=== PATIENT | male | born 2005 | race Caucasian/White ===

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

== ENCOUNTER 2024-03-30 18:48 | Emergency (ER) | payer OTHER ==
[2024-03-30 19:21] VITALS: BP 133/86; PULSE 75; RESP 18; TEMP 98.1
--- NOTE | 2024-03-30 19:35 | ED ---
Headache HPI - General Source: patient, RN notes reviewed Mode of arrival: ambulatory Limitations: no limitations <Alexis Herbert - Last Filed: 03/30/24 19:33> - General Source: patient, RN notes reviewed <Kat Estrella - Last Filed: 03/30/24 22:45> - General Chief Complaint: Headache Stated Complaint: dizzy blurry vison headache Time Seen by Provider: 03/30/24 18:59 - History of Present Illness Initial Comments: Quick note: This is a 18-year-old male presenting with headache x 2 days. Patient also endorses blurred vision and nausea. Denies fever, chills, chest pain, dyspnea, dizziness, abdominal pain, vomiting/diarrhea. (Alexis Herbert) 18-year-old male presenting for headache x 2 days with associated blurry vision, nausea, and dizziness. States yesterday he was playing with his family when his head was pulled back by another family member. Denies loss of consciousness. Denies blood thinners. States over the past day he has had a constant posterior headache. (Kat Estrella) - Related Data Previous Rx's Medication Instructions Recorded Dicyclomine [Bentyl] 10 mg PO TID PRN 7 Days #21 capsule 06/17/22 Ondansetron Odt [Zofran Odt] 4 mg PO Q8HR PRN 2 Days #6 tab 06/17/22 Cephalexin [Keflex] 500 mg PO Q12HR 7 Days #14 cap 10/06/23 Allergies Allergy/AdvReac Type Severity Reaction Status Date / Time No Known Allergies Allergy Verified 03/30/24 19:20 Review of Systems ROS Other: All systems not noted in ROS Statement are negative. <Alexis Herbert - Last Filed: 03/30/24 19:33> ROS Other: All systems not noted in ROS Statement are negative. <Kat Estrella - Last Filed: 03/30/24 22:45> ROS Statement: Those systems with pertinent positive or pertinent negative responses have been documented in the HPI. Past Medical History Past Medical History: No Reported History History of Any Multi-Drug Resistant Organisms: None Reported Past Surgical History: Hernia Repair, Tonsillectomy Past Psychological History: No Psychological Hx Reported Smoking Status: Vaper Past Alcohol Use History: None Reported Past Drug Use History: None Reported <Alexis Herbert - Last Filed: 03/30/24 19:33> General Exam Limitations: no limitations <Alexis Herbert - Last Filed: 03/30/24 19:33> General appearance: alert, in no apparent distress Head exam: Present: atraumatic, normocephalic, normal inspection Eye exam: Present: normal appearance, PERRL, EOMI. Absent: scleral icterus, conjunctival injection, periorbital swelling ENT exam: Present: normal exam, normal oropharynx, mucous membranes moist, TM's normal bilaterally Neck exam: Present: normal inspection. Absent: tenderness, meningismus, lymphadenopathy Respiratory exam: Present: normal lung sounds bilaterally. Absent: respiratory distress, wheezes, rales, rhonchi, stridor Cardiovascular Exam: Present: regular rate, normal rhythm, normal heart sounds. Absent: systolic murmur, diastolic murmur, rubs, gallop, clicks Neurological exam: Present: alert, oriented X3, CN II-XII intact Psychiatric exam: Present: normal affect, normal mood Skin exam: Present: warm, dry, intact, normal color. Absent: rash <Kat Estrella - Last Filed: 03/30/24 22:45> - General Exam Comments Initial Comments: Visual Physical Exam Vital signs reviewed General: Well-appearing, nontoxic, no acute distress. Head: Normocephalic, atraumatic Eyes: PERRLA, EOMI ENT: Airway patent Chest: Nonlabored breathing Skin: No visual rash, normal skin tone Neuro: Alert and oriented 3 Musculoskeletal: No gross abnormalities (Alexis Herbert) Course Vital Signs 03/30/24 19:17 Temperature 98.1 F Pulse Rate 75 Respiratory 18 Rate Blood Pressure 133/86 O2 Sat by Pulse 100 Oximetry Medical Decision Making <Alexis Herbert - Last Filed: 03/30/24 19:33> <Kat Estrella - Last Filed: 03/30/24 22:45> - Medical Decision Making I completed the quick note portion of this chart signed GLENN Ugarte (Alexis Herbert) Was pt. sent in by a medical professional or institution ([facility], FLOORWORKER DISTRIBUTOR, urgent care, hospital, or intermediate...) When possible be specific @ -No Did you speak to anyone other than the patient for history (EMS, parent, family, police, friend...)? What history was obtained from this source @ -No Did you review nursing and triage notes (agree or disagree)? Why? @ -I reviewed and agree with nursing and triage notes Were old charts reviewed (outside hosp., previous admission, EMS record, old EKG, old radiological studies, urgent care reports/EKG's, intermediate records)? Report findings @ -No old charts were reviewed Differential Diagnosis (chest pain, altered mental status, abdominal pain women, abdominal pain men, vaginal bleeding, weakness, fever, dyspnea, syncope, headache, dizziness, GI bleed, back pain, seizure, CVA, palpatations, mental health, musculoskeletal)? @ -Differential Headache: Migraine, tension, cluster, carbon monoxide, central venous thrombosis, pension karma temporal arteritis, acute closure glaucoma, intercranial hemorrhage, mastoiditis, sinusitis, head injury, this is not meant to be an all-inclusive list. EKG interpreted by me (3pts min.). @ -None X-rays interpreted by me (1pt min.). @ -None done CT interpreted by me (1pt min.). @ -CT brain reveals no acute process U/S interpreted by me (1pt. min.). @ -None done What testing was considered but not performed or refused? (CT, X-rays, U/S, labs)? Why? @ -None What meds were considered but not given or refused? Why? @ -None Did you discuss the management of the patient with other professionals (professionals i.e. , PA, FLOORWORKER DISTRIBUTOR, lab, RT, psych nurse, social media executive, linen aide, teacher, chief lending officer, case hardener)? Give summary @ -No Was smoking cessation discussed for >3mins.? @ -No Was critical care preformed (if so, how long)? @ -No Were there social determinants of health that impacted care today? How? (Homelessness, low income, unemployed, alcoholism, drug addiction, transportation, low edu. Level, literacy, decrease access to med. care, prison, rehab)? @ -No Was there de-escalation of care discussed even if they declined (Discuss DNR or withdrawal of care, Hospice)? DNR status @ -No What co-morbidities impacted this encounter? (DM, HTN, Smoking, COPD, CAD, Cancer, CVA, ARF, Chemo, Hep., AIDS, mental health diagnosis, sleep apnea, m orbid obesity)? @ -None Was patient admitted / discharged? Hospital course, mention meds given and route, prescriptions, significant lab abnormalities, going to OR and other pertinent info. @ -Discharge. 18-year-old male presenting for headache x 2 days status post head injury with associated vision changes, nausea, and dizziness. Denies blood thinners. Neuro examination unremarkable. Provided with dose of Tylenol. CT brain reveals no acute process. Discussed results with patient. Discussed diagnosis of closed head injury. Supportive care/return precautions discussed. Advised to follow-up with PCP for reevaluation. Case was discussed with my ED attending Dr. Yung. Undiagnosed new problem with uncertain prognosis? @ -No Drug Therapy requiring intensive monitoring for toxicity (Heparin, Nitro, Insulin, Cardizem)? @ -No Were any procedures done? @ -No Diagnosis/symptom? @ -Closed head injury Acute, or Chronic, or Acute on Chronic? @ -Acute Uncomplicated (without systemic symptoms) or Complicated (systemic symptoms)? @ -Uncomplicated Side effects of treatment? @ -No Exacerbation, Progression, or Severe Exacerbation? @ -No Poses a threat to life or bodily function? How? (Chest pain, USA, MD, pneumonia, PE, COPD, DKA, ARF, appy, cholecystitis, CVA, Diverticulitis, Homicidal, Suicidal, threat to staff... and all critical care pts) @ -No (Kat Estrella) - Lab Data Lab Results 03/30/24 Range/Units 19:53 Influenza Type A (PCR) Not Detected (Not Detectd) Influenza Type B (PCR) Not Detected (Not Detectd) RSV (PCR) Not Detected (Not Detectd) SARS-CoV-2 (PCR) Not Detected (Not Detectd) Disposition <Alexis Herbert - Last Filed: 03/30/24 19:33> Is patient prescribed a controlled substance at d/c from ED?: No Time of Disposition: 22:45 <Kat Estrella - Last Filed: 03/30/24 22:45> Clinical Impression: Closed head injury Disposition: HOME SELF-CARE Condition: Stable Instructions (If sedation given, give patient instructions): Concussion (ED) Additional Instructions: Please return to the Emergency Department if symptoms worsen or any other guerrero rns. Referrals: None,Stated [Primary Care Provider] - 1-2 days Forms: Area PCPs
[2024-03-30 20:48] LABS: Influenza A Not Detected (Not Detectd); Influenza B Not Detected (Not Detectd); RSV Not Detected (Not Detectd)
[2024-03-30] MEDS: ONDANSETRON ODT 4 MG TAB PO STA (21:20)
[2024-03-30] MEDS: ACETAMINOPHEN TAB 500 MG TAB PO STA (21:21)
--- NOTE | 2024-03-30 22:08 | CT ---
EXAMINATION TYPE: CT brain wo con DATE OF EXAM: 03/30/2024 9:35 PM COMPARISON: 10/29/2023 CLINICAL INDICATION: Male, 18 years old with history of headache x 1 day s/p head injury, headache x 1 day, pain TECHNIQUE: CT of the brain is performed utilizing 3 mm thick sections through the posterior fossa and 3 mm thick sections through the remaining calvarium. Study is performed within 24 hours of arrival to the hospital. Contrast used: mL of , (none if empty) CT DLP: 1012.7 mGycm, Automated exposure control for dose reduction was used. FINDINGS: No abnormal hyperdensity is present to suggest an acute intracranial hemorrhage. No mass lesion is evident. No acute infarcts are evident. Ventricles and sulci are appropriate for the patient age. Paranasal sinuses and mastoid air cells within the [id number] are clear. IMPRESSIONS: 1. No acute intracranial process. Follow-up MRI can be performed as clinically indicated. [facility], , 03/30/2024 10:05 PM
== END 2024-03-30 23:07 | disposition home or self-care (01) ==
LOC: EC 18:48
DX: S09.90XA Unspecified injury of head, initial encounter (principal); F17.290 Nicotine dependence, other tobacco product, uncomplicated; W50.0XXA Accidental hit or strike by another person, initial encounter
CPT/HCPCS: 70450; 87636; 99284